=== PATIENT | female | born 1990 | race African-American/Black ===

== ENCOUNTER 2019-01-21 13:08 | Emergency (ER) | payer OTHER ==
[2019-01-21 13:33] VITALS: BP 129/83
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
== END 2019-01-21 15:21 | disposition home or self-care (01) ==
LOC: ER 13:08
DX: M54.2 Cervicalgia (principal); V44.5XXA Car driver injured in collision with heavy transport vehicle or bus in traffic accident, initial encounter; Y92.411 Interstate highway as the place of occurrence of the external cause
CPT/HCPCS: 99283